=== PATIENT | male | born 1975 | race Caucasian/White ===

== ENCOUNTER → 2021-09-24 | Outpatient (CLI) | payer OTHER | LOC: M RAD 14:06 | PROVIDERS: ATTEND Physician Assistant | DX: R06.00 Dyspnea, unspecified (principal) ==

== ENCOUNTER → 2021-10-29 | Outpatient (CLI) | payer OTHER ==
[~2021-10-29] MED LIST: METHACHOLINE KIT (J7674) INH ONE
== END ==
LOC: M CARPUL 11:18
PROVIDERS: ATTEND Physician Assistant
DX: R06.00 Dyspnea, unspecified (principal)

== ENCOUNTER → 2022-12-31 | Outpatient (CLI) | payer OTHER | LOC: M PLAIMG 06:36 | PROVIDERS: ATTEND Physician Assistant | DX: M25.421 Effusion, right elbow (principal); M66.821 Spontaneous rupture of other tendons, right upper arm; M66.221 Spontaneous rupture of extensor tendons, right upper arm ==

== ENCOUNTER → 2023-02-19 | Outpatient (REF) | payer OTHER, SELFPAY | LOC: M PLAIMG 11:53 → EDSTATUS 02-20 15:49 | PROVIDERS: ATTEND Internal Medicine | DX: R52 Pain, unspecified (principal) ==

== ENCOUNTER → 2023-04-15 | Outpatient (CLI) | payer OTHER | LOC: M PLAIMG 08:30 | PROVIDERS: ATTEND Physician Assistant | DX: S92.351A Displaced fracture of fifth metatarsal bone, right foot, initial encounter for closed fracture (principal); R22.41 Localized swelling, mass and lump, right lower limb; M79.671 Pain in right foot; M25.571 Pain in right ankle and joints of right foot; Y93.9 Activity, unspecified; Y92.9 Unspecified place or not applicable ==

== ENCOUNTER → 2024-07-14 | Outpatient (CLI) | payer OTHER ==
[~2024-07-14] MED LIST changes: +ADVA230A INH; +CITA20TA6 PO; -METHACHOLINE KIT (J7674) INH ONE; +PROA1AER2 IN; +SIMV20TA22 PO
== END ==
LOC: M EKG 12:09
PROVIDERS: ATTEND Anesthesiology
DX: Z01.818 Encounter for other preprocedural examination (principal)

== ENCOUNTER 2024-07-21 07:44 | Day surgery (SDC) | payer OTHER ==
[~2024-07-21] VITALS: Ht 188 cm; Wt 110.2 kg
[2024-07-21] MEDS ORDERED: LR 1,000 ML IV SCH (07:55)
[2024-07-21] MEDS ORDERED: propofoL 200 MG/20 ML VIAL As Ordered ONE (08:09)
[2024-07-21] MEDS ORDERED: LIDOCAINE 2% 100MG/5ML SDV (FOR ANES.) As Ordered ONE (08:09)
[2024-07-21] MEDS ORDERED: ROCURONIUM BROMIDE 50MG/5ML VIAL As Ordered ONE (08:09)
[2024-07-21] MEDS ORDERED: MIDAZOLAM INJ 2MG/2ML VIAL As Ordered ONE (08:10)
[2024-07-21] MEDS ORDERED: fentaNYL 250 MCG/5 ML INJECTION As Ordered ONE (08:10)
[2024-07-21] MEDS: ceFAZolin SOD 2 GM in IV 1 EA IV ONE (09:07)
[2024-07-21] MEDS ORDERED: ONDANSETRON 4MG 2ML VIAL As Ordered ONE (09:26)
[2024-07-21] MEDS ORDERED: KETOROLAC 60MG 2ML VIAL As Ordered ONE (09:26)
[2024-07-21] MEDS ORDERED: ONDANSETRON 4MG 2ML VIAL IV PRN (10:00)
[2024-07-21] MEDS ORDERED: fentaNYL 100 MCG/2 ML INJECTION IV PRN (10:00)
[2024-07-21] MEDS ORDERED: MORPHINE 2 MG/ML 1ML VIAL IV PRN (10:00)
[2024-07-21] MEDS: oxyCODONE 5MG TAB PO PRN (11:25)
[2024-07-21 12:00] VITALS: BP 123/71; TEMP 97.7; O2SAT 98
== END 2024-07-21 12:19 | disposition home or self-care (01) ==
LOC: M SDC 07:44
PROVIDERS: ATTEND Surgery
DX: K43.6 Other and unspecified ventral hernia with obstruction, without gangrene (principal); K42.0 Umbilical hernia with obstruction, without gangrene; G47.30 Sleep apnea, unspecified; Z79.899 Other long term (current) drug therapy
CPT/HCPCS: 49594; C1781; J0665; J0690; J1100; J1885; J2250; J2405; J3010

== ENCOUNTER → 2024-08-02 | Outpatient (REF) | payer OTHER | LOC: M LAB REF 14:54 | PROVIDERS: ATTEND Surgery | DX: D22.5 Melanocytic nevi of trunk (principal) ==